=== PATIENT | female | born 1965 | race Caucasian/White ===

== ENCOUNTER 2016-12-22 19:30 | Inpatient (IN) | payer OTHER ==
[2016-12-22] MEDS ORDERED: ONDANSETRON 4 MG/2 ML VIAL ONE (20:28)
[2016-12-22] MEDS ORDERED: HYDROmorphONE/DILAUDID 1 MG/ML SYR ONE ×2 (20:28→23:02)
[2016-12-22] MEDS ORDERED: HYDROmorphONE/DILAUDID 1 MG/ML SYR IVP ONE (20:36)
[2016-12-22] MEDS ORDERED: NS 1,000 ML IV ONE ×2 (20:36→21:23)
[2016-12-22] MEDS ORDERED: ONDANSETRON 4 MG/2 ML VIAL IVP ONE ×2 (20:36→21:23)
--- NOTE | 2016-12-22 20:41 | EDPHY ---
H & P Stated Complaint: epigastric pain Time Seen by Provider: 12/22/16 20:33 HPI/ROS: CHIEF COMPLAINT: Abdominal pain. HISTORY OF PRESENT ILLNESS: The patient is a 51-year-old female presenting with severe upper abdominal pain for the past 3 days. The patient has a history of cholecystectomy at age 16. She has since had several episodes of biliary obstruction requiring sphincterotomy. Patient has history of pancreatitis, last episode of pancreatitis was after her last sphincterotomy in June of 2016. Her pain is in the upper abdomen with radiation to her epigastric region and back. She had associated emesis, 3 episodes over the past 24 hours. She notes sweats and hot flashes over the past few days, but has not taken her temperature. She has diarrhea twice per day, this is normal for her, no change. Her abdominal pain has remained constant. She denies bloody stools, hematemesis, or urinary complaints. REVIEW OF SYSTEMS: A ten point review of systems was performed and is negative with the exception of the items mentioned in the HPI. Source: Patient - Personal History LMP (Females 10-55): Post Menopausal Current Tetanus/Diphtheria Vaccine: Yes Current Tetanus Diphtheria and Acellular Pertussis (TDAP): Yes - Medical/Surgical History Hx Asthma: No Hx Chronic Respiratory Disease: No Hx Diabetes: No Hx Cardiac Disease: No Hx Renal Disease: No Hx Cirrhosis: Yes Hx Alcoholism: No Hx HIV/AIDS: No Hx Splenectomy or Spleen Trauma: No Other PMH: PMH: HIGH CHOLESTEROL, hYPOTHYROID. PSH: APPENDECTOMY, TONSILLECTOMY, CHOLECYSTECTOMY, breast reduction, ERCP with sphincterotomy X 3, pancreatitis - Social History Smoking Status: Never smoked Additional Social History: . No drug use. - Physical Exam Exam: General Appearance: Alert. Vital signs reviewed. Blood pressure 140/101. Eyes: Pupils equal and round, no conjunctival injection, no discharge. Anicteric. ENT, Mouth: Mucous membranes are moist, no oropharyngeal erythema or edema. Neck: No lymphadenopathy, supple. Respiratory: Lungs are clear to auscultation; no wheezes, rales, or rhonchi. Cardiovascular: Regular rate and rhythm; no murmur, rub, or gallop. Gastrointestinal: Abdomen is soft with tenderness in midepigastrium, no guarding, no masses or organomegaly, bowel sounds normal. Skin: Warm and dry, no rashes on exposed skin, normal color. Back: Nontender to palpation over the thoracolumbar spine. No CVAT. Extremities: No lower extremity edema, no calf tenderness or swelling. Neurological: Alert and oriented. Moving all four extremities easily and equally. Psychiatric: Normal affect. Constitutional: Initial Vital Signs Temperature (C) 36.7 C 12/22/16 20:01 Heart Rate 75 12/22/16 20:01 Respiratory Rate 16 12/22/16 20:01 Blood Pressure 140/101 H 12/22/16 20:01 O2 Sat (%) 97 12/22/16 20:01 O2 Delivery Mode Room Air Allergies/Adverse Reactions: codeine [Codeine] Allergy (Verified 12/22/16 19:59) Home Medications: Medication Instructions Recorded Liothyronine Sodium [Cytomel 5 mcg 5 mcg PO BID@08,12 06/25/16 (*)] Simvastatin [Zocor] 20 mg PO HS 06/25/16 Acetaminophen [Tylenol 325mg (*)] 650 mg PO Q4HRS PRN #0 tab 06/26/16 Amitriptyline 100 mg 06/27/16 LORazepam 12/22/16 Medical Decision Making - Diagnostics Imaging Results: Imaging Impressions Abdomen Ultrasound 12/22/16 22:07 Impression: 1. Status post cholecystectomy with no source for abdominal pain identified. 2. Multiple hepatic echogenic foci as detailed above probably unchanged from 2004. 3. See above report for additional findings. Results called and discussed with ZENAIDA LAMBERT on 12/22/2016 at 23:15 ED Course/Re-evaluation: The patient is a 51-year-old female presenting with 3 days of severe abdominal pain. The patient has a history of cholecystectomy at age 16. She has since had several episodes of biliary obstruction requiring sphincterotomy. Patient has history of pancreatitis, last episode of pancreatitis was after her last sphincterectomy in June of 2016. The patient's pain tonight is severe. She has associated emesis. Patient has chronic diarrhea alternating with constipation, no reported changes. IV was established, patient received 0.5mg Dilaudid, 4mg Zofran, and 1L normal saline. Plan to check liver function, labs, and urinalysis. The patient continues to have nausea, she received an additional dose of 4mg Zofran. Her liver functions are elevated. AST today is 814, it was 584 last June. ALT is elevated today, but was higher in June. Alk phos is 161, bilirubin 1.5. Her Lipase today is normal. I discussed findings with the patient. She tells me she had 2 sphincterotomy is 2003. 1 in June of 2016. Normal white blood cell count. I doubt cholangitis. I discussed admission with the patient and her family. She agrees with plan for admission with Gastroenterology consult. 10:06 p.m.: I spoke to the tar distillation supervisor railway patrol officer. RUQ US pending. Anticipate ERCP tomorrow. She will be NPO after midnight. One gram IV Invanz given. 10:45 p.m.: I spoke to the hospitalist, Dr. Nicholson, who accepts the patient for admission. US pending. Differential Diagnosis: Considered a differential diagnosis that includes but is not limited to biliary obstruction, cholangitis, pancreatitis, gastritis/peptic ulcer disease, and gastroenteritis. - Data Points Laboratory Results: Laboratory Results 12/22/16 20:21 12/22/16 20:21 12/22/16 12/22/16 20:21 20:21 WBC 3.88 10^3/uL 10^3/uL (3.80-9.50) RBC 4.84 10^6/uL 10^6/uL (4.18-5.33) Hgb 14.7 g/dL g/dL (12.6-16.3) Hct 44.4 % % (38.0-47.0) MCV 91.7 fL fL (81.5-99.8) MCH 30.4 pg pg (27.9-34.1) MCHC 33.1 g/dL g/dL (32.4-36.7) RDW 13.1 % % (11.5-15.2) Plt Count 193 10^3/uL 10^3/uL (150-400) MPV 11.3 fL fL (8.7-11.7) Neut % (Auto) 39.6 % % (39.3-74.2) Lymph % (Auto) 48.2 % H % (15.0-45.0) [place] % (Auto) 8.8 % % (4.5-13.0) Eos % (Auto) 2.1 % % (0.6-7.6) Baso % (Auto) 1.0 % % (0.3-1.7) Nucleat RBC Rel Count 0.0 % % (0.0-0.2) Absolute Neuts (auto) 1.54 10^3/uL L 10^3/uL (1.70-6.50) Absolute Lymphs (auto) 1.87 10^3/uL 10^3/uL (1.00-3.00) Absolute Monos (auto) 0.34 10^3/uL 10^3/uL (0.30-0.80) Absolute Eos (auto) 0.08 10^3/uL 10^3/uL (0.03-0.40) Absolute Basos (auto) 0.04 10^3/uL 10^3/uL (0.02-0.10) Absolute Nucleated RBC 0.00 10^3/uL 10^3/uL (0-0.01) Immature Gran % 0.3 % % (0.0-1.1) Immature Gran # 0.01 10^3/uL 10^3/uL (0.00-0.10) Sodium 141 mEq/L mEq/L (134-144) Potassium 3.9 mEq/L mEq/L (3.5-5.2) Chloride 102 mEq/L mEq/L (97-110) Carbon Dioxide 28 mEq/l mEq/l (22-31) Anion Gap 11 mEq/L mEq/L (8-16) BUN 11 mg/dL mg/dL (7-23) Creatinine 0.7 mg/dL mg/dL (0.6-1.0) Estimated GFR > 60 Glucose 87 mg/dL mg/dL (70-100) Calcium 10.1 mg/dL mg/dL (8.5-10.4) Total Bilirubin 1.5 mg/dL H mg/dL (0.1-1.4) Conjugated Bilirubin 0.8 mg/dL H mg/dL (0.0-0.5) Unconjugated Bilirubin 0.7 mg/dL mg/dL (0.0-1.1) AST 814 IU/L H IU/L (14-46) ALT 623 IU/L H IU/L (9-52) Alkaline Phosphatase 161 IU/L H IU/L (38-126) Total Protein 8.2 g/dL g/dL (6.3-8.2) Albumin 4.9 g/dL g/dL (3.5-5.0) Lipase 179.0 IU/L IU/L (23-300) Medications Given: Discontinued Medications Hydromorphone HCl (Dilaudid) 0.5 mg IVP EDNOW ONE Stop: 12/22/16 20:37 Last Admin: 12/22/16 20:37 Dose: 0.5 mg Sodium Chloride (Ns) 1,000 mls @ 0 mls/hr IV ONCE ONE PRN Reason: Wide Open Stop: 12/22/16 20:37 Last Admin: 12/22/16 20:37 Dose: 1,000 mls Sodium Chloride (Ns) 1,000 mls @ 0 mls/hr IV ONCE ONE PRN Reason: Wide Open Stop: 12/22/16 21:24 Last Admin: 12/22/16 21:24 Dose: 1,000 mls Ertapenem 1 gm/ Sodium (Chloride) 100 mls @ 200 mls/hr IV EDNOW ONE PRN Reason: Protocol Stop: 12/22/16 22:45 Last Admin: 12/22/16 23:25 Dose: 100 mls Ondansetron HCl (Zofran) 4 mg IVP EDNOW ONE Stop: 12/22/16 20:37 Last Admin: 12/22/16 20:37 Dose: 4 mg Ondansetron HCl (Zofran) 4 mg IVP EDNOW ONE Stop: 12/22/16 21:24 Last Admin: 12/22/16 21:24 Dose: 4 mg Departure - Departure Disposition: [facility] Inpatient Acute Clinical Impression: Elevated liver function tests Abdominal pain Qualifiers: Abdominal location: epigastric Qualified Code(s): R10.13 - Epigastric pain Condition: Fair Report Scribed for: Zenaida Lambert Report Scribed by: Carolyn Doran Date of Report: 12/22/16 Time of Report: 20:54 Physician Review and Approval Statement: 12/22/16 20:40 Portions of this note were transcribed by the biomedical analytical scientist. I, Dr. Zenaida Lambert, personally performed the history, physical exam, and medical decision- making; and confirmed the accuracy of the information in the transcribed note.
[2016-12-22 21:01] LABS: % IMMATURE GRANULYOCYTES 0.3 % (0.0-1.1); ABSOLUTE IMMATURE GRANULOCYTES 0.01 10^3/uL (0.00-0.10); ADD DIFF? NO; ADD MORPH? NO; ADD SCAN? NO; ATYPICAL LYMPHOCYTE FLAG 0 (0-99); FRAGMENT RBC FLAG 0 (0-99); HEMATOCRIT 44.4 % (38.0-47.0); HEMOGLOBIN 14.7 g/dL (12.6-16.3); LEFT SHIFT FLG 0 (0-99); LIPEMIA HEMOLYSIS FLAG 80 (0-99); MEAN CELL HEMOGLOBIN 30.4 pg (27.9-34.1); MEAN CELL HEMOGLOBIN CONCENTR. 33.1 g/dL (32.4-36.7); MEAN CELL VOLUME 91.7 fL (81.5-99.8); MEAN PLATELET VOLUME 11.3 fL (8.7-11.7); PLATELET CLUMPS FLAG 0 (0-99); PLATELET COUNT 193 10^3/uL (150-400); RED BLOOD CELL COUNT 4.84 10^6/uL (4.18-5.33); RED CELL DISTRIBUTION WIDTH 13.1 % (11.5-15.2)
[2016-12-22 21:05] LABS: ALANINE AMINOTRANSFERASE 623 IU/L (9-52); ALBUMIN 4.9 g/dL (3.5-5.0); ALKALINE PHOSPHATASE 161 IU/L (38-126); ANION GAP 11 mEq/L (8-16); BILIRUBIN,TOTAL 1.5 mg/dL (0.1-1.4); BILIRUBIN-CONJUGATED 0.8 mg/dL (0.0-0.5); BILIRUBIN-UNCONJUGATED 0.7 mg/dL (0.0-1.1); CALCIUM 10.1 mg/dL (8.5-10.4); CARBON DIOXIDE 28 mEq/l (22-31); CHLORIDE 102 mEq/L (97-110); CREATININE 0.7 mg/dL (0.6-1.0); GLOMERULAR FILTRATION RATE > 60; GLUCOSE 87 mg/dL (70-100); POTASSIUM 3.9 mEq/L (3.5-5.2); SODIUM 141 mEq/L (134-144); TOTAL PROTEIN 8.2 g/dL (6.3-8.2)
[2016-12-22 21:22] LABS: ASPARTATE AMINOTRANSFERASE 814 IU/L (14-46)
[2016-12-22] MEDS ORDERED: ERTAPENEM 1 GM in NS 100 ML IV ONE (22:16)
[2016-12-22] MEDS ORDERED: ACETAMINOPHEN 325 MG TAB PO PRN (22:59)
[2016-12-22] MEDS: HYDROmorphONE/DILAUDID 1 MG/ML SYR IVP PRN (23:07)
[2016-12-22 23:13] LABS: COLOR YELLOW; LEUKOCYTE ESTERASE,URINE NEGATIVE (NEGATIVE); NITRITE,URINE NEGATIVE (NEGATIVE)
[2016-12-22] MEDS ORDERED: PROMETHAZINE HCL 25 MG TAB PO PRN (23:58)
[2016-12-23] MEDS: NS 1,000 ML IV SCH ×2 (00:03→12:48)
[2016-12-23] MEDS ORDERED: METOCLOPRAMIDE 10 MG/2 ML VIAL IVP PRN (00:21)
[2016-12-23] MEDS ORDERED: methylPREDNISolone SOD SUCC 125 MG/2 ML VIAL IVP ONE (00:33)
[2016-12-23] MEDS ORDERED: ALBUTEROL 3 ML DEYVIAL IH ONE (00:34)
[2016-12-23] MEDS ORDERED: ALBUTEROL 3 ML DEYVIAL IH PRN (00:34)
[2016-12-23] MEDS ORDERED: ALBUTEROL 3 ML DEYVIAL ONE (00:40)
--- NOTE | 2016-12-23 00:40 | GHP ---
[f rep st] HISTORY AND PHYSICAL DATE OF ADMISSION: 12/22/2016 CHIEF COMPLAINT: Epigastric pain. HISTORY: The patient is a 51-year-old female, who had a cholecystectomy at age 16. 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 She now re-presents to the hospital with severe epigastric pain similar to her previous episodes. It radiates to her back and to her chest. It started 3 days ago and has escalated, now severity 10/10. She is having nause a and vomiting with diarrhea. There has been no fever. The pain does not get worse when she eats, but she is taking very little p.o. The pain does come in waves. PAST MEDICAL HISTORY: 1. Sphincter of Oddi stricturing, status post a sphincterotomy 2003 and 2015. 2. Migraine headaches. PAST SURGICAL HISTORY: 1. Cholecystectomy at age 16. 2. Appendectomy. 3. Breast cyst removal. 4. Breast augmentation. 5. Tubal ligation. MEDICATIONS: Please see computer record for full detailed list. ALLERGIES: Codeine. SOCIAL HISTORY: No smoking. No alcohol. She lives with her . REVIEW OF SYSTEMS: Complete review of systems obtained. Review of system is negative regarding con stitutional, HEENT, GI, pulmonary, cardiovascular, , hematology, skin, musculoskeletal, endocrine, psych except for positives and negatives as in HPI. FAMILY HISTORY: Reviewed and noncontributory to presenting complaint. PHYSICAL EXAMINATION: GENERAL: Well-developed, well-nourished female, in no acute distress. VITAL SIGNS: Temperature is 36.7, pulse 75, blood pressure 140/101, satting 97% on room air. EYES: Nor mal conjunctivae. Pupils equal, reactive to light. ENT: Normal ears, nose. Hearing intact. Norm al lips and teeth. Oropharynx moist. NECK: Trachea midline. No thyromegaly. CHEST: Normal resp iratory effort. Lungs clear to auscultation bilaterally. CARDIOVASCULAR SYSTEM: Regular rate and rhythm. No murmur. No lower extremity edema. ABDOMEN: Soft, nontender. After receiving IV Dilau did, no hepatosplenomegaly. SKIN: Warm, dry, intact. No rash. MUSCULOSKELETAL: No cyanosis or c lubbing. Strength 5/5, upper and lower extremities. NEURO: Cranial nerves intact. Normal sensati on to light touch. PSYCH: Alert and oriented x3. Normal affect. Normal judgment. Normal insight . Normal memory. LABORATORY DATA: White count 3.8, hematocrit 44.4, platelets 193. Sodium 161, potassium 3.9, chlor triny 102, bicarb 28, BUN 11, creatinine 0.9, glucose 87. Total bilirubin 1.5, AST 814, ALT 623. Lip ase is 179. Alkaline phosphatase 161. IMAGING DATA: Abdominal ultrasound is negative for common bile duct dilation. This case was discussed with Dr. Driscoll. She spoke with Gastroenterology, and they do plan for repe at ERCP in the morning. MEDICAL RECORDS REVIEW: I reviewed her old medical records including an ERCP report from 2015 that was performed by Dr. Paige. He thought he had an excellent result and she had a low chance of re-str icturing. Viral hepatitis panel was negative. RACHEL was positive. ASSESSMENT/PLAN: Increased LFTs with pain. Suspect recurrent stricture of the sphincter of Oddi. Gastroenterology has been consulted. ERCP to be performed in the morning. Will to continue to tren d her LFTs. Will keep her comfortable with IV Dilaudid overnight. Interestingly, according to Dr. Paige, he got an excellent result with her ERCP last June and felt she had a low chance of re-stricturing. She is now less than a year later and has recurrence. Ceci muñoz and her would like to have alternative hepatic pathologies considered. Viral hepatitis panel was checked last admission and was negative. She did have a positive RACHEL. I will recheck th is. Can also discuss with GI whether a full workup for hepatic disease has been done in the past. If her ERCP shows clear recurrence of stricture, I think that would make this less necessary, but if ERCP is unremarkable, this should probably be pursued. CODE STATUS: Full. ADMISSION STATUS: Will admit to inpatient as she is medically complex. Anticipate greater than 2 m idnights. DEEP VEIN THROMBOSIS PROPHYLAXIS: Will hold off given procedure anticipated in the morning. /[id number]/MODL
[2016-12-23] MEDS ORDERED: FAMOTIDINE 20 MG/2 ML SDV IVP SCH (01:00)
[2016-12-23] MEDS: FAMOTIDINE 20 MG/NACL 50 ML IV SCH ×3 (01:02→20:23)
--- NOTE | 2016-12-23 01:47 | HOSPPROG ---
Hospitalist Progress Note Assessment/Plan: Called to see patient urgently shortly after arrival to floor due to anaphylaxis. Patient developed acute SOB, eye swelling, wheezing and feeling like her throat was closing. VSS - Lungs CTA bilaterally. Patient lying in bed, very uncomfortable, mild resp distress. A/P: * Early anaphylaxis - suspect due to Invanz given in ER -patient given Epi 0.3mg 1:1000, Solumedrol 125mg, Benadryl 50mg -albuterol nebs -IV pepcid -patient transferred to Step down unit for closer monitoring cc time spent - 40 minutes Objective: Vital Signs Temp Pulse Resp BP Pulse Ox 36.7 C 76 14 123/66 H 98 12/23/16 01:20 12/23/16 01:20 12/23/16 01:20 12/23/16 01:20 12/23/16 01:20 12/21/16 12/22/16 12/23/16 05:59 05:59 05:59 Intake Total 2089 Balance 209 ICD10 Worksheet Patient Problems: Problems Problem Status Onset Abdominal pain Acute Elevated liver function tests Acute Elevated liver enzymes Acute Epigastric abdominal pain Acute
[2016-12-23] MEDS ORDERED: methylPREDNISolone SOD SUCC 125 MG/2 ML VIAL ONE (01:53)
[2016-12-23] MEDS: HYDROmorphONE/DILAUDID 1 MG/ML SYR IVP PRN ×6 (04:22→17:26)
[2016-12-23] MEDS: ONDANSETRON 4 MG/2 ML VIAL IVP PRN ×3 (04:23→17:34)
[2016-12-23 05:47] LABS: % IMMATURE GRANULYOCYTES 0.5 % (0.0-1.1); ABSOLUTE IMMATURE GRANULOCYTES 0.01 10^3/uL (0.00-0.10); ADD DIFF? NO; ADD MORPH? NO; ADD SCAN? NO; ATYPICAL LYMPHOCYTE FLAG 10 (0-99); FRAGMENT RBC FLAG 0 (0-99); HEMATOCRIT 36.4 % (38.0-47.0); LEFT SHIFT FLG 30 (0-99); LIPEMIA HEMOLYSIS FLAG 80 (0-99); MEAN CELL HEMOGLOBIN 30.8 pg (27.9-34.1); MEAN CELL VOLUME 93.6 fL (81.5-99.8); MEAN PLATELET VOLUME 11.7 fL (8.7-11.7); PLATELET CLUMPS FLAG 40 (0-99); PLATELET COUNT 136 10^3/uL (150-400); RED BLOOD CELL COUNT 3.89 10^6/uL (4.18-5.33); RED CELL DISTRIBUTION WIDTH 13.2 % (11.5-15.2)
[2016-12-23] MEDS: methylPREDNISolone SOD SUCC 125 MG/2 ML VIAL IVP SCH ×2 (05:58→12:31)
[2016-12-23 06:05] LABS: ALANINE AMINOTRANSFERASE 993 IU/L (9-52); ALBUMIN 3.6 g/dL (3.5-5.0); ALKALINE PHOSPHATASE 154 IU/L (38-126); ANION GAP 9 mEq/L (8-16); BILIRUBIN,TOTAL 1.7 mg/dL (0.1-1.4); BILIRUBIN-CONJUGATED 1.1 mg/dL (0.0-0.5); BILIRUBIN-UNCONJUGATED 0.6 mg/dL (0.0-1.1); CALCIUM 8.6 mg/dL (8.5-10.4); CARBON DIOXIDE 19 mEq/l (22-31); CHLORIDE 114 mEq/L (97-110); CREATININE 0.6 mg/dL (0.6-1.0); GLOMERULAR FILTRATION RATE > 60; GLUCOSE 117 mg/dL (70-100); POTASSIUM 4.1 mEq/L (3.5-5.2); SODIUM 142 mEq/L (134-144); TOTAL PROTEIN 6.1 g/dL (6.3-8.2)
[2016-12-23 06:25] LABS: PROTIME(PATIENT) 13.1 SEC (12.0-15.0)
[2016-12-23 08:09] LABS: ASPARTATE AMINOTRANSFERASE 1368 IU/L (14-46)
[2016-12-23] MEDS ORDERED: GLUCAGON,HUMAN RECOMBINANT 1 MG VIAL ONE (09:24)
[2016-12-23] MEDS ORDERED: IOTHALAMATE MEG (CONRAY) 50 ML VIAL IV ONE (09:24)
[2016-12-23] MEDS ORDERED: MIDAZOLAM 2 MG/2 ML VIAL ONE (10:19)
[2016-12-23 10:20] LABS: ANTINUCLEAR ANTIBODIES SCREEN 1.33 UNITS (<1.00)
[2016-12-23] MEDS ORDERED: ROCURONIUM 50 MG/5 ML VIAL ONE (10:20)
[2016-12-23] MEDS ORDERED: fentaNYL 100 MCG/2 ML INJ ONE (10:20)
[2016-12-23] MEDS ORDERED: PROPOFOL/EMULSION 500 MG/50 ML BOTTLE IV ONE (10:20)
[2016-12-23] MEDS ORDERED: PROPOFOL 200 MG/20 ML VIAL ONE (10:20)
--- NOTE | 2016-12-23 10:29 | HOSPPROG ---
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 She initially had a sphincterotomy in 2003 and has had repeat sphincterotomy in June of 2016. She presented in the emergency room with severe epigastric pain similar to her previous episodes. Today is my 1st encounter with the patient. Chart reviewed. * Epigastric pain initial concern this was caused secondary to stricture of the sphincter of Oddi ERCP today -removal of debris/ sphincterotomy was patent cl liquids later this evening increased diluadid dose * elevated LFTs abdominal ultrasound is negative for common bile duct dilation has been on statin therapy/ will hold this * early anaphylaxis this occurred earlier this morning most likely secondary to getting ertapenem\ patient was treated with Benadryl, IV steroids, epi, and Pepcid symptoms resolved *thrombocytopenia will follow *hypothyroid resume meds *migraine headaches *Plan: monitor overnight/repeat lft's in a.m./ reviewed plan of care with patient and her , Antonio, who is at the bedside Subjective: Salma is upset about having to be in the hospital/ having some ongoing abdominal pain. Objective: Vital Signs Temp Pulse Resp BP Pulse Ox 36.6 C 72 19 100/56 L 99 12/23/16 08:00 12/23/16 08:00 12/23/16 08:00 12/23/16 08:00 12/23/16 08:00 Laboratory Results 12/23/16 05:20 12/23/16 05:20 12/22/16 12/23/16 12/24/16 05:59 05:59 05:59 Intake Total 2490 Output Total 450 Balance 2040 PT 13.1 SEC (12.0-15.0) 12/23/16 05:20 INR 1.00 (0.83-1.16) 12/23/16 05:20 - Physical Exam Constitutional: uncomfortable, No not in pain Eyes: PERRL Ears, Nose, Mouth, Throat: hearing normal Cardiovascular: regular rate and rhythym Respiratory: no respiratory distress Gastrointestinal: normoactive bowel sounds, tenderness Skin: warm Musculoskeletal: no muscle tenderness Neurologic: AAOx3 Psychiatric: interacting appropriately, anxious ICD10 Worksheet Patient Problems: Problems Problem Status Onset Epigastric abdominal pain Acute Elevated liver enzymes Acute Elevated liver function tests Acute Abdominal pain Acute
[2016-12-23] MEDS ORDERED: INDOMETHACIN 50 MG SUPP PR ONE (10:30)
[2016-12-23] MEDS ORDERED: SUGAMMADEX SODIUM 200 MG/2 ML VIAL IVP ONE ×2 (10:53)
--- NOTE | 2016-12-23 10:56 | SOAPPROG ---
SOAP Progress Note Assessment/Plan: Assessment: Plan: 12/23/16 10:55 GI note See dictated consult and procedure note for details. On ERCP had removal of debris. Sphincterotomy was patent and 15mm balloon was extracted. Recommend to monitor LFTs. Sips of clears ok this evening if doing well. Objective: Vital Signs Temp Pulse Resp BP Pulse Ox 36.6 C 72 19 100/56 L 99 12/23/16 08:00 12/23/16 08:00 12/23/16 08:00 12/23/16 08:00 12/23/16 08:00 Laboratory Results 12/23/16 05:20 12/23/16 05:20 12/22/16 12/23/16 12/24/16 05:59 05:59 05:59 Intake Total 2490 Output Total 450 Balance 2040 PT 13.1 SEC (12.0-15.0) 12/23/16 05:20 INR 1.00 (0.83-1.16) 12/23/16 05:20 ICD10 Worksheet Patient Problems: Problems Problem Status Onset Epigastric abdominal pain Acute Elevated liver enzymes Acute Elevated liver function tests Acute Abdominal pain Acute
[2016-12-23] MEDS ORDERED: AMITRIPTYLINE HCL 10 MG TAB PO SCH (21:00)
[2016-12-23 23:17] VITALS: RESP 16
[2016-12-24] MEDS ORDERED: LEVOTHYROXINE 50 MCG TAB PO SCH (06:00)
--- NOTE | 2016-12-24 06:11 | GPN ---
[f rep st] PROCEDURE NOTE DATE OF PROCEDURE: 12/23/2016 PROCEDURE: ERCP with extraction of debris. INDICATION: Mrs. Shabazz is a 51-year-old female with a prior history of a cholecystectomy, sphincter of Oddi dysfunction who presents to [facility] with complaints of abdominal pain with radiation to the back. She was noted to have liver function consistent with biliary obstruction. She presents for biliary decompression. CONSENT: Risks, benefits, and alternatives of the procedure were discussed in great detail with the patient. Risk of infection, bleeding, perforation, sedation, and pancreatitis were discussed. All questions answered and informed consent was obtained. MEDICATIONS: General anesthesia. Please see anesthesiology details. Rectal indomethacin 100 mg x1. ESTIMATED BLOOD LOSS: None. ERCP EXAMINATION: The Olympus duodenoscope was inserted in the mouth to second portion of the duodenum. The ampulla was brought into view and evidence of a prior biliary sphincterotomy was noted. Using a NEXAGE sphincterotome and a 0.035 inch wire, a wire was advanced to the common bile duct using the wire guided technique. No pancreatic manipulation or injection was made. A limited cholangiogram was performed to confirm position. An occlusion cholangiogram was performed with a 12mm balloon. Contrast was injected into the biliary system. Flow was excellent with adequate images achieved. I personally interpreted the radiographic images in real time. The common bile duct was mildly dilated and measured approximately 9 mm. Balloon sweeps were made with the extraction of debris. A 12-15 mm was then utilized and was easily extracted from the ampulla. No ampullary stenosis was noted. The prior sphincterotomy did appear to be quite adequate and would allow passage of a 15mm balloon as well as a completely bowed sphincterotome. IMPRESSION: 1. Extraction of debris. 2. Adequate prior sphincterotomy. RECOMMENDATIONS: 1. Keep n.p.o., consider sips of liquid later this evening.. 2. Monitor LFTs. /[id number]/MODL MTDD
--- NOTE | 2016-12-24 06:36 | GCON ---
[f rep st] CONSULTATION DATE OF CONSULTATION: 12/23/2016 REFERRING PHYSICIAN: Shani Nicholson MD REASON FOR CONSULTATION: Epigastric abdominal pain/biliary obstruction. CHIEF COMPLAINT: Epigastric abdominal pain. HISTORY OF PRESENT ILLNESS: Mrs. Shabazz is a 51-year-old female with history of remote cholecystectomy who presents to [facility] with complaints of epigastric abdominal pain, as well as nausea and vomiting. The patient does have a history of sphincter of Oddi dysfunction and had 2 ERCPs at the [facility] by Dr. Burrows in 2003. 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 . She did develop post ERCP pancreatitis. She states she did well but still had intermittent symptoms of abdominal pain. She did have an ERCP last year and was found to have ampullary stenosis. She did develop post ERCP pancreatitis. She has had intermittent symptoms of abdominal pain approximately every 2 months. The pain is normally in the mid epigastrium with radiation to the back. She denies any exacerbating or alleviating factors to her pain. This Wednesday she started to experience an attack of pain. She describes pain as very sharp with radiation into her back. She also had complaints of nausea with several episodes of vomiting. She also had minimal complaints of diarrhea. The pain was constant and did not resolve. I am being asked by Dr. Nicholson to see the patient in consultation regarding abdominal pain as well as the possibility of biliary obstruction. PAST MEDICAL HISTORY: 1. Hyperlipidemia. 2. Hypothyroidism. 3. Migraine headaches. 4. Sphincter of Oddi. PAST SURGICAL HISTORY: Cholecystectomy at age 16, appendectomy, breast augmentation, tubal ligation. MEDICATIONS: Cytomel, simvastatin 20 mg, acetaminophen, amitriptyline 100 mg. ALLERGIES: Codeine. SOCIAL HISTORY: No significant alcohol or tobacco use. FAMILY HISTORY: There is no history of pancreatic cancer. REVIEW OF SYSTEMS: A 14-point comprehensive review of systems was asked. Pertinent positives and negatives as per HPI. PHYSICAL EXAM: VITALS: Blood pressure 120/72, pulse 75, temperature 36.5. GENERAL: Awake, alert and oriented x3. HEENT: Anicteric sclerae. Moist mucosa. NECK: No JVD. CARDIOVASCULAR: Regular rate and rhythm. Positive S1 , S2. LUNGS: Clear to auscultation bilaterally. No wheezes, rhonchi. ABDOMEN : Soft, tender in midepigastrium. No guarding. No rebound. Positive bowel sounds. EXTREMITIES: No clubbing, cyanosis or edema. NEUROLOGIC: 2 through 12 grossly intact. PSYCH: Normal affect. MUSCULOSKELETAL: No joint deformities or effusions noted. LABORATORY DATA: Blood work: WBC is 2.08, hemoglobin 12.0, hematocrit 36.4. INR 1.0. Sodium 142, chloride 114, total bilirubin 1.7. AST 1368, ALT 993, alk phos 154, lipase 179. Ultrasound: No common bile duct or intrahepatic dilation. ASSESSMENT AND PLAN: 1. Abdominal pain- with radiation to the back. Increased liver function tests. 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 Did have a prior ERCP last year with ampullary stenosis noted. Etiology ?. Due to the abdominal pain radiating to the back as well as increased liver functions, her clinical picture is most consistent with biliary obstruction, I am concerned that she has ampullary stenosis/biliary obstruction. At this time , I recommend to proceed with ERCP. The risks, benefits, and alternatives of the procedure were discussed in great detail with the patient. The risk of infection, bleeding, perforation, sedation, and pancreatitis were discussed. She has had several prior issues of post ERCP pancreatitis. I recommend to give rectal indomethacin prior to the procedure. 2. History of hyperlipidemia. 3. History of hypothyroidism. Thank you very much for this consultation. /[id number]/MODL MTDD
[2016-12-24] MEDS ORDERED: LIOTHYRONINE SODIUM 5 MCG TAB PO SCH (08:00)
[2016-12-24 08:01] VITALS: BP 116/67; PULSE 66; TEMP 98.3; O2SAT 95
[2016-12-24] MEDS: FAMOTIDINE 20 MG/NACL 50 ML IV SCH (08:33)
[2016-12-24] MEDS: NS 1,000 ML IV SCH (08:37)
[2016-12-24 09:35] LABS: ALBUMIN 3.6 g/dL (3.5-5.0); BILIRUBIN,TOTAL 1.1 mg/dL (0.1-1.4); BILIRUBIN-CONJUGATED 0.4 mg/dL (0.0-0.5); BILIRUBIN-UNCONJUGATED 0.7 mg/dL (0.0-1.1)
--- NOTE | 2016-12-24 09:36 | HOSPPROG ---
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 She initially had a sphincterotomy in 2003 and has had repeat sphincterotomy in June of 2016. She presented in the emergency room with severe epigastric pain similar to her previous episodes. * Epigastric pain initial concern this was caused secondary to stricture of the sphincter of Oddi ERCP done yesterday -removal of debris/ sphincterotomy was patent pain has resolved/ reg diet ordered * elevated LFTs abdominal ultrasound is negative for common bile duct dilation has been on statin therapy/ will hold this today's labs are pending * early anaphylaxis this occurred during her stay, most likely secondary to getting ertapenem\ patient was treated with Benadryl, IV steroids, epi, and Pepcid symptoms resolved Ertapenem is now listed as an allergy *thrombocytopenia will follow *hypothyroid resume meds *migraine headaches *Plan: dc if eating and lft's are improving Subjective: Salma is feeling much better/ anxious to go Objective: Vital Signs Temp Pulse Resp BP Pulse Ox 36.8 C 66 16 116/67 95 12/24/16 07:57 12/24/16 07:57 12/24/16 07:57 12/24/16 07:57 12/24/16 07:57 Laboratory Results 12/23/16 05:20 12/23/16 05:20 12/23/16 12/24/16 12/25/16 05:59 05:59 05:59 Intake Total 2490 1005 Output Total 450 2000 950 Balance 2040 -995 -950 PT 13.1 SEC (12.0-15.0) 12/23/16 05:20 INR 1.00 (0.83-1.16) 12/23/16 05:20 - Physical Exam Constitutional: no apparent distress, appears nourished, not in pain Eyes: PERRL Ears, Nose, Mouth, Throat: hearing normal Respiratory: no respiratory distress Gastrointestinal: normoactive bowel sounds, soft, non-tender abdomen Skin: warm, normal color Musculoskeletal: full muscle strength Neurologic: AAOx3 Psychiatric: interacting appropriately, not anxious ICD10 Worksheet Patient Problems: Problems Problem Status Onset Abdominal pain Acute Elevated liver function tests Acute Elevated liver enzymes Acute Epigastric abdominal pain Acute
--- NOTE | 2016-12-24 11:40 | GDS ---
[f rep st] DISCHARGE SUMMARY DISCHARGE DIAGNOSES: 1. Epigastric pain with history of stricture of the sphincter of Oddi. 2. Elevated liver enzymes. 3. Early anaphylaxis. 4. Thrombocytopenia. 5. Hypothyroidism. 6. Migraine headaches. CONSULTATIONS: Dr. Manuel Clement. BRIEF HISTORY: The patient is a 51-year-old female who had a cholecystectomy at age 16. 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 She presented to the hospital with severe epigastric pain similar to her previous episodes during her stay, she wa s seen and evaluated by Dr. Manuel Clement. On 12/23, she had an ERCP with extraction of debris. He not ed that her previous sphincterotomy was adequate. She improved nicely. Prior to this procedure,she received some ertapenem in the preop setting. She developed swelling, concerns that her throat was closing, with associated eye swelling, and wheezing. She was treated with epinephrine, Solu-Medrol , and Benadryl. She was transferred to the step-down unit for close monitoring. Her symptoms resol eric quickly. Today, she will be discharged home. She will follow up with her primary care provider and get repea t liver enzymes, as these were quite elevated during her stay. HOSPITAL COURSE PER PROBLEM: 1. Epigastric pain. The initial concern was this was caused secondary to her stricture of the sphi ncter of Oddi. The ERCP removed debris. Her sphincterotomy was patent. She is eating a regular di et. 2. Elevated liver enzymes. Ultrasound is negative for common bile duct dilation. This is likely s econdary to the above. Recommended she hold statin therapy. She will get repeat labs this next wee k. Her liver enzymes have trended down. 3. Early anaphylaxis. This occurred secondary to getting ertapenem. This has been listed as an al lergy. 4. Thrombocytopenia. Further follow up with her PCP. 5. Hypothyroidism. Home medications resumed. 6. Migraine headaches. None during her stay. CONDITION AT DISCHARGE: Stable. Blood pressure is 116/67, O2 sats on room air 95%, respiratory rat e is 16, pulse is 66, temperature is 36.8 Celsius. MEDICATIONS AT DISCHARGE: Please see the EMR. DISCHARGE INSTRUCTIONS: 1. Follow up with her primary care provider. Her liver enzymes are elevated. 2. Hold statin therapy until this normalizes. Continued close monitoring. 3. If she has any further abdominal pain, to return to the ER. Greater than 30 minutes discharging and coordinating care. /[id number]/MODL
== END 2016-12-24 10:17 | disposition home or self-care (01) | DRG 444 ==
LOC: OBSVTOIN 22:45 → F3E 23:50 → F2N 12-23 01:05 → F3E 12-23 09:40
PROVIDERS: ADMIT Internal Medicine; ATTEND Internal Medicine
PROC: 0FC98ZZ Extirpation of Matter from Common Bile Duct, Via Natural or Artificial Opening Endoscopic (ICD-10-PCS; principal; 2016-12-23 10:00)
DX: K83.8 Other specified diseases of biliary tract (principal); R57.8 Other shock; R74.8 Abnormal levels of other serum enzymes; E03.9 Hypothyroidism, unspecified; D69.6 Thrombocytopenia, unspecified; G43.909 Migraine, unspecified, not intractable, without status migrainosus; E78.00 Pure hypercholesterolemia, unspecified; T36.95XA Adverse effect of unspecified systemic antibiotic, initial encounter
CPT/HCPCS: 96374; J0171; J1170; J1200; J1335; J1610; J2250; J2405; J2704; J3010; Q9961